=== PATIENT | male | born 1960 | race Caucasian/White ===

== ENCOUNTER 2019-10-24 14:17 | Emergency (ER) | payer BC, MEDICAID ==
[~2019-10-24] VITALS: Ht 165.1 cm; Wt 86.9 kg
[~2019-10-24 14:17] MED LIST: AMOX-842 PO; HYDR-5191 PO; METH750T5 PO
[2019-10-24 14:29] VITALS: BP 143/56
--- NOTE | 2019-10-24 14:44 | NUR ---
RECTAL PAIN X 7 DAYS. PER PT OBTAINED SX OF HEMORRHOIDS 6 YEARS AGO, THE PAIN COMES AND GOES WITH LAST RECTAL PAIN EPISODE 3 MONTHS AGO. PER PT CURRENTLY BLEEDING IN RECTAL AREA DUE TO HEMORRHOIDS X1 DAY. PATIENT STATES PAIN OF 8/10 AT THIS TIME; VSS; PATIENT POSITIONED FOR COMFORT; HOB ELEVATED; BEDRAILS UP X1; BED DOWN. ER MD MADE AWARE OF PT STATUS.
[2019-10-24 16:19] LABS: BASOPHILS % (AUTO) 0.7 % (0.0-2.0); EOSINOPHILS # (AUTO) 0.1 K/uL (0-0.4); EOSINOPHILS % (AUTO) 2.5 % (0.0-4.0); HEMATOCRIT 42.8 % (36-52); HEMOGLOBIN 14.5 g/dL (12.0-18.0); LYMPHOCYTES # (AUTO) 0.9 K/uL (2.0-11.5); LYMPHOCYTES % (AUTO) 17.8 % (20.5-51.1); MEAN CORPUSCULAR HEMOGLOBIN 30 pg (27-31); MEAN CORPUSCULAR HGB CONC 34 g/dL (33-37); MEAN CORPUSCULAR VOLUME 89.5 fL (80-94); MONOCYTES # (AUTO) 0.5 K/uL (0.8-1.0); MONOCYTES % (AUTO) 10.7 % (1.7-9.3); NEUTROPHILS # (AUTO) 3.3 K/uL (1.8-7.7); NEUTROPHILS % (AUTO) 68.3 % (42.2-75.2); PLATELET COUNT (AUTO) 67 K/uL (140-450); RED BLOOD CELL COUNT(AUTO) 4.78 MIL/uL (4.20-6.10); RED CELL DISTRIBUTION WIDTH 13.7 % (11.6-13.7); WHITE BLOOD COUNT (AUTO) 4.9 K/uL (4.8-10.8)
--- NOTE | 2019-10-24 16:31 | NUR ---
CT consent signed and placed in chart.
[2019-10-24 16:42] LABS: ALBUMIN 3.4 g/dL (3.4-5.0); ANION GAP 15.5 (8-16); CARBON DIOXIDE 22.6 mmol/L (21-32); CREATININE 1.1 mg/dL (0.6-1.3); POTASSIUM 4.1 mmol/L (3.5-5.1); TOTAL BILIRUBIN 0.6 mg/dL (0.0-1.0)
--- NOTE | 2019-10-24 17:30 | NUR ---
Pt is resting in the bed with eyes opened.
[2019-10-24 18:27] VITALS: BP 159/85
== END 2019-10-24 18:27 | disposition home or self-care (01) ==
LOC: MED 14:17
DX: K64.9 Unspecified hemorrhoids (principal); Z79.899 Other long term (current) drug therapy
CPT/HCPCS: 36415; 72193; 80053; 85025; 99285; Q9967